=== PATIENT | female | born 1980 | race Caucasian/White ===

== ENCOUNTER → 2019-02-25 | Day surgery (SDC) | payer OTHER ==
[~2019-02-25] MED LIST: BUPR100T7 PO; CITA20TA9 PO; HYDROmorphone 2 MG/ML VIAL IV PRN; IV RINGERS,LACTATED 1000ML 1,000 ML IV SCH; LIDOCAINE 1% PF 2 ML VIAL. ID PRN; LIDOCAINE 2% PF 5 ML VIAL. ONE; MORPHINE SULFATE 2 MG/ML VIAL. IV PRN; ONDANSETRON PF 4 MG/2 ML VIAL. IV PRN; PROCHLORPERAZINE 10 MG/2 ML VIAL. IV PRN; PROPOFOL 20 ML IV ONE; PROPOFOL 40 ML IV ONE; fentaNYL PF VIAL 100 MCG/2 ML VIAL IV PRN
[2019-02-25 14:55] VITALS: BP 138/81
== END ==
LOC: ENDOS 13:08
PROVIDERS: ATTEND Internal Medicine Gastroenterology
DX: K52.9 Noninfective gastroenteritis and colitis, unspecified (principal); K21.0 Gastro-esophageal reflux disease with esophagitis; K64.0 First degree hemorrhoids; F41.9 Anxiety disorder, unspecified; F32.9 Major depressive disorder, single episode, unspecified; F15.90 Other stimulant use, unspecified, uncomplicated; Z88.0 Allergy status to penicillin; Z72.89 Other problems related to lifestyle
CPT/HCPCS: 43239; 45380; 81025; 88305; J2001; J2704

== ENCOUNTER → 2019-04-14 | Outpatient (CLI) | payer OTHER ==
[2019-02-25 14:55] VITALS: BP 138/81
[~2019-04-14] MED LIST changes: -HYDROmorphone 2 MG/ML VIAL IV PRN; -IV RINGERS,LACTATED 1000ML 1,000 ML IV SCH; -LIDOCAINE 1% PF 2 ML VIAL. ID PRN; -LIDOCAINE 2% PF 5 ML VIAL. ONE; +MAG HYDROX/ALUMINUM HYD/SIMETH 30 ML ORAL.SUSP PO ONE; -MORPHINE SULFATE 2 MG/ML VIAL. IV PRN; -ONDANSETRON PF 4 MG/2 ML VIAL. IV PRN; -PROCHLORPERAZINE 10 MG/2 ML VIAL. IV PRN; -PROPOFOL 20 ML IV ONE; -PROPOFOL 40 ML IV ONE; -fentaNYL PF VIAL 100 MCG/2 ML VIAL IV PRN
--- NOTE | 2019-04-15 14:02 | SLEEP ---
DATE OF STUDY: 04/14/2019 SLEEP STUDY REFERRING PHYSICIAN: Hillary Ramos MD The patient is 38-year-old who weighs 199 pounds with a BMI of 37. The patient's [employer] score was 14. The patient underwent sleep study performed at [facility]. Review of medications includes Celexa and Wellbutrin. During the night study, the patient spent 410 minutes in bed and slept for 286 minutes with a sleep efficiency of 70%. Sleep latency was 43 minutes with a REM latency of 254 minutes. Sleep architecture showed increased stage 1 and stage 2 sleep, increased slow wave and reduced REM sleep. During the night study, the patient had no obstructive apneas, no mixed apneas. There were 3 central apneas and 2 hypopneas. The patient's AHI for the entire night was 2 per hour with a supine AHI of 2 per hour and REM AHI of 12 per hour. Nocturnal oximetry study revealed a mean oxygen saturation of 94% with the lowest of 88%. PLMS were seen at index of 11 per hour and 2 per hour caused EEG arousals. EKG monitoring revealed no arrhythmias. Average heart rate 87 beats per minute. Due to low AHI, the patient did not meet the split night criteria for CPAP initiation. IMPRESSION: 1. No clinically significant sleep disorder breathing. The patient's AHI for the entire night was 2 per hour. Mild REM sleep related hypopneas seen. 2. No clinically significant nocturnal hypoxia. 3. No clinically significant periodic limb movements. RECOMMENDATIONS: 1. The patient did not meet the criteria for CPAP initiation due to low AHI. 2. The patient is clinically symptomatic. If clinical suspicion for other disorders such as narcolepsy or idiopathic hypersomnia is high, then consider doing multiple sleep latency tests. 3. Weight loss is advised. 4. Avoid [employer] depressants. 5. Caution regarding driving until the patient's hypersomnia is resolved. ESTEFANIA CALZADA MD DR: YANET/suraj JOB#: [id number] / [id number] HILLARY Torrez MD
== END | disposition home or self-care (01) ==
LOC: SLPLAB 18:58
PROVIDERS: ATTEND Family Medicine
DX: R06.83 Snoring (principal); R53.83 Other fatigue; F51.5 Nightmare disorder; G47.00 Insomnia, unspecified; R06.81 Apnea, not elsewhere classified
CPT/HCPCS: 95810